=== PATIENT | female | born 1940 | race Caucasian/White ===

== ENCOUNTER 2016-07-17 07:47 | Outpatient (CLI) | payer MEDICARE, BC ==
[2016-07-17] VITALS (8 sets, daily range): BP systolic 125–169; BP diastolic 57–84; PULSE 65–77; TEMP 97.7–98.9
[~2016-07-17] VITALS: Ht 162.6 cm; Wt 74.0 kg
[~2016-07-17 07:47] MED LIST: ACTONEL PO; ADRENACLICK IM; ALEVE 220MG220 MG PO; ASPIRIN E.C. 8181 MG PO; ATIVAN 0.50.5 MG/TAB PO; CELEXA40 MG PO; CIPRO 250MG TA250 MG PO; CLINDAMYCIN HC150 MG PO; FOSAMAX 70MG TA70 MG PO; FOSAMAX70 MG PO; IMMUNE GLOBULIN 50 MG/ML IV; LEVOTHYROXINE PO; LEXAPRO20 MG PO; NEURONTIN300 MG/CAP PO; NEXIUM 20MG20 MG PO; NORCO 325 MG-51 TAB PO; PREDNISONE20 MG PO; PRILOSEC 20MG20 MG PO; PRISTIQ 50 MG T50 MG PO; SYNTHROID0.088 MG/T PO; SYNTHROID0.1 MG/TAB PO; WELLBUTRIN 100100 MG PO; WELLBUTRIN XL300 M1 PO; ZOLOFT 25MG25 MG PO; ZOLOFT 50MG50 MG PO
== END 2016-07-17 12:00 | disposition home or self-care (01) ==
LOC: EUO 07:47
DX: D80.1 Nonfamilial hypogammaglobulinemia (principal); Z45.2 Encounter for adjustment and management of vascular access device
CPT/HCPCS: J1459; J1644

== ENCOUNTER 2016-08-13 07:58 | Outpatient (CLI) | payer MEDICARE, BC ==
[2016-08-13] VITALS (9 sets, daily range): BP systolic 92–133; BP diastolic 47–68; PULSE 41–76; TEMP 97.5–98.3
[~2016-08-13] VITALS: Ht 162.6 cm; Wt 75.0 kg
== END 2016-08-13 11:54 | disposition home or self-care (01) ==
LOC: EUO 07:58
DX: D80.1 Nonfamilial hypogammaglobulinemia (principal)
CPT/HCPCS: J1459

== ENCOUNTER → 2016-09-01 | Outpatient (CLI) | payer MEDICARE, BC | LOC: MC.RAD 11:15 | DX: Z12.31 Encounter for screening mammogram for malignant neoplasm of breast (principal); D24.2 Benign neoplasm of left breast; D24.1 Benign neoplasm of right breast; Z80.3 Family history of malignant neoplasm of breast ==

== ENCOUNTER 2016-09-10 08:00 | Outpatient (CLI) | payer MEDICARE, BC ==
[~2016-09-10] VITALS: Ht 162.6 cm; Wt 75.0 kg
[2016-09-10] VITALS (8 sets, daily range): BP systolic 120–138; BP diastolic 55–95; PULSE 46–80; TEMP 97.3–97.9
== END 2016-09-10 13:16 | disposition home or self-care (01) ==
LOC: EUO 08:00
DX: D80.1 Nonfamilial hypogammaglobulinemia (principal)
CPT/HCPCS: J1459; J1644

== ENCOUNTER 2016-10-08 08:11 | Outpatient (CLI) | payer MEDICARE, BC ==
[~2016-10-08] VITALS: Ht 162.6 cm; Wt 75.0 kg
[2016-10-08 09:00] VITALS: BP 117/54; PULSE 64
[2016-10-08 09:15] VITALS: BP 117/93; PULSE 68
[2016-10-08 09:30] VITALS: BP 125/66; PULSE 71
[2016-10-08 09:45] VITALS: BP 124/64; PULSE 71
[2016-10-08 10:00] VITALS: BP 125/61; PULSE 63
[2016-10-08 10:30] VITALS: BP 134/70; PULSE 64
== END 2016-10-08 11:35 | disposition home or self-care (01) ==
LOC: EUO 08:11
DX: D80.1 Nonfamilial hypogammaglobulinemia (principal)
CPT/HCPCS: J1459; J1644

== ENCOUNTER → 2016-10-10 | Outpatient (CLI) | payer MEDICARE, BC | LOC: MHCPAIN 09:58 | DX: G89.29 Other chronic pain (principal); M47.27 Other spondylosis with radiculopathy, lumbosacral region | CPT/HCPCS: G0463 ==

== ENCOUNTER → 2016-10-16 | Outpatient (CLI) | payer MEDICARE, BC | LOC: MHCPAIN 12:10 | DX: M54.16 Radiculopathy, lumbar region (principal) | CPT/HCPCS: J1100; Q9967 ==

== ENCOUNTER 2016-11-05 08:01 | Outpatient (CLI) | payer MEDICARE, BC ==
[~2016-11-05] VITALS: Ht 162.6 cm; Wt 73.6 kg
[2016-11-05] VITALS (8 sets, daily range): BP systolic 131–149; BP diastolic 43–85; PULSE 43–73; TEMP 98.1–98.2
== END 2016-11-05 11:01 | disposition home or self-care (01) ==
LOC: EUO 08:01
DX: D80.1 Nonfamilial hypogammaglobulinemia (principal)
CPT/HCPCS: J1459

== ENCOUNTER → 2016-11-14 | Outpatient (CLI) | payer MEDICARE, BC | LOC: MHCPAIN 09:53 | DX: G89.29 Other chronic pain (principal); M47.817 Spondylosis without myelopathy or radiculopathy, lumbosacral region; M54.16 Radiculopathy, lumbar region | CPT/HCPCS: G0463 ==

== ENCOUNTER → 2016-11-20 | Outpatient (CLI) | payer MEDICARE, BC | LOC: MHCPAIN 11:19 | DX: M47.817 Spondylosis without myelopathy or radiculopathy, lumbosacral region (principal) | CPT/HCPCS: J1040; Q9967 ==

== ENCOUNTER 2016-12-03 07:53 | Outpatient (CLI) | payer MEDICARE, BC ==
[2016-12-03] VITALS (10 sets, daily range): BP systolic 137–169; BP diastolic 42–81; PULSE 59–71; TEMP 97.3
[~2016-12-03] VITALS: Ht 162.6 cm; Wt 72.7 kg
== END 2016-12-03 11:23 | disposition home or self-care (01) ==
LOC: EUO 07:53
DX: D80.1 Nonfamilial hypogammaglobulinemia (principal)
CPT/HCPCS: J1459

== ENCOUNTER → 2016-12-19 | Outpatient (CLI) | payer MEDICARE, BC | LOC: MHCPAIN 10:14 | DX: G89.29 Other chronic pain (principal); M47.817 Spondylosis without myelopathy or radiculopathy, lumbosacral region; M54.16 Radiculopathy, lumbar region; M25.50 Pain in unspecified joint | CPT/HCPCS: G0463 ==

== ENCOUNTER 2017-01-01 13:01 | Outpatient (CLI) | payer MEDICARE, BC ==
[2017-01-01] VITALS (10 sets, daily range): BP systolic 132–148; BP diastolic 51–64; PULSE 35–65; TEMP 98–98.7
== END 2017-01-01 18:00 | disposition home or self-care (01) ==
LOC: EUO 13:01
DX: Z01.89 Encounter for other specified special examinations (principal)
CPT/HCPCS: J1459

== ENCOUNTER 2017-01-28 07:58 | Outpatient (CLI) | payer MEDICARE, BC ==
[2017-01-28] VITALS (8 sets, daily range): BP systolic 121–143; BP diastolic 44–76; PULSE 45–79; TEMP 97.4–98.8
[~2017-01-28] VITALS: Ht 162.6 cm; Wt 73.3 kg
== END 2017-01-28 12:00 | disposition home or self-care (01) ==
LOC: EUO 07:58
DX: D80.1 Nonfamilial hypogammaglobulinemia (principal); Z79.899 Other long term (current) drug therapy
CPT/HCPCS: J1459; J1644

== ENCOUNTER → 2017-02-04 | Outpatient (CLI) | payer MEDICARE, BC | LOC: MHCPAIN 11:42 | DX: G89.29 Other chronic pain (principal); M50.90 Cervical disc disorder, unspecified, unspecified cervical region; R51 Headache | CPT/HCPCS: G0463 ==

== ENCOUNTER 2017-02-27 08:05 | Outpatient (CLI) | payer MEDICARE, BC ==
[2017-02-27] VITALS (7 sets, daily range): BP systolic 129–163; BP diastolic 60–74; PULSE 61–71; TEMP 97.5–98.3
[~2017-02-27] VITALS: Ht 162.6 cm; Wt 73.7 kg
== END 2017-02-27 12:00 | disposition home or self-care (01) ==
LOC: EUO 08:05
DX: D80.1 Nonfamilial hypogammaglobulinemia (principal); Z79.899 Other long term (current) drug therapy
CPT/HCPCS: J1459; J1644

== ENCOUNTER → 2017-03-09 | Outpatient (CLI) | payer MEDICARE, BC | LOC: MHCPAIN 10:03 | DX: G89.29 Other chronic pain (principal); M50.90 Cervical disc disorder, unspecified, unspecified cervical region; R51 Headache | CPT/HCPCS: G0463 ==

== ENCOUNTER → 2017-03-27 | Outpatient (CLI) | payer MEDICARE, BC ==
[~2017-03-27] MED LIST changes: +LYRICA 25MG CAP25 MG PO
== END ==
LOC: MHCPAIN 09:16
DX: G89.29 Other chronic pain (principal); M47.27 Other spondylosis with radiculopathy, lumbosacral region; M53.3 Sacrococcygeal disorders, not elsewhere classified
CPT/HCPCS: G0463

== ENCOUNTER 2017-03-31 07:42 | Outpatient (CLI) | payer MEDICARE, BC ==
[~2017-03-31] VITALS: Ht 162.6 cm; Wt 73.1 kg
[2017-03-31] VITALS (8 sets, daily range): BP systolic 121–136; BP diastolic 54–82; PULSE 61–72; TEMP 97.5–98.3
[~2017-03-31 07:42] MED LIST changes: -LYRICA 25MG CAP25 MG PO
[2017-03-31] MEDS ORDERED: LYRICA 25MG CAP25 MG PO (09:09)
== END 2017-03-31 12:00 | disposition home or self-care (01) ==
LOC: EUO 07:42
DX: D80.1 Nonfamilial hypogammaglobulinemia (principal); Z79.899 Other long term (current) drug therapy
CPT/HCPCS: J1459

== ENCOUNTER → 2017-04-22 | Outpatient (CLI) | payer MEDICARE, BC ==
[~2017-04-22] MED LIST changes: +LYRICA 25MG CAP25 MG PO
== END ==
LOC: MHCPAIN 07:59
DX: G89.29 Other chronic pain (principal); M47.27 Other spondylosis with radiculopathy, lumbosacral region; M47.812 Spondylosis without myelopathy or radiculopathy, cervical region; Z79.82 Long term (current) use of aspirin
CPT/HCPCS: G0463

== ENCOUNTER 2017-04-30 09:53 | Outpatient (CLI) | payer MEDICARE, BC ==
[2017-04-30] VITALS (7 sets, daily range): BP systolic 125–144; BP diastolic 53–75; PULSE 36–47; TEMP 97.6–98.6
[~2017-04-30] VITALS: Ht 162.6 cm; Wt 72.3 kg
== END 2017-04-30 13:30 | disposition home or self-care (01) ==
LOC: EUO 09:53
DX: D80.1 Nonfamilial hypogammaglobulinemia (principal)
CPT/HCPCS: J1459; J1644

== ENCOUNTER → 2017-05-20 | Outpatient (CLI) | payer MEDICARE, BC | LOC: MHCPAIN 10:25 | DX: G89.29 Other chronic pain (principal); M47.27 Other spondylosis with radiculopathy, lumbosacral region; M48.061 Spinal stenosis, lumbar region without neurogenic claudication | CPT/HCPCS: G0463 ==

== ENCOUNTER 2017-06-04 09:34 | Outpatient (CLI) | payer MEDICARE, BC ==
[~2017-06-04] VITALS: Ht 162.6 cm; Wt 79.7 kg
[2017-06-04 10:00] VITALS: BP 148/66; PULSE 66; TEMP 97.3
[2017-06-04 10:15] VITALS: BP 142/72; PULSE 68; TEMP 98
[2017-06-04 10:45] VITALS: BP 142/72; PULSE 68; TEMP 98
[2017-06-04 11:03] VITALS: BP 146/68; PULSE 71; TEMP 98
[2017-06-04 11:30] VITALS: BP 118/50; PULSE 62; TEMP 98
[2017-06-04 12:00] VITALS: BP 126/53; PULSE 65; TEMP 98
== END 2017-06-04 13:49 | disposition home or self-care (01) ==
LOC: EUO 09:34
DX: D80.1 Nonfamilial hypogammaglobulinemia (principal); Z79.899 Other long term (current) drug therapy
CPT/HCPCS: J1569

== ENCOUNTER 2017-07-02 09:44 | Outpatient (CLI) | payer MEDICARE, BC ==
[2017-07-02] VITALS (8 sets, daily range): BP systolic 118–153; BP diastolic 56–98; PULSE 60–75; TEMP 97.5–97.9
[~2017-07-02] VITALS: Ht 162.6 cm; Wt 73.5 kg
== END 2017-07-02 13:58 | disposition home or self-care (01) ==
LOC: EUO 09:44
DX: D80.1 Nonfamilial hypogammaglobulinemia (principal)
CPT/HCPCS: J1459; J1569; J1644

== ENCOUNTER 2017-07-29 09:35 | Outpatient (CLI) | payer MEDICARE, BC ==
[~2017-07-29] VITALS: Ht 162.6 cm; Wt 73.0 kg
[2017-07-29] VITALS (8 sets, daily range): BP systolic 111–127; BP diastolic 43–90; PULSE 43–73; TEMP 97.8–98.2
== END 2017-07-29 15:28 | disposition home or self-care (01) ==
LOC: EUO 09:35
DX: Z45.2 Encounter for adjustment and management of vascular access device (principal); D80.1 Nonfamilial hypogammaglobulinemia
CPT/HCPCS: J1569; J1644

== ENCOUNTER → 2017-08-04 | Outpatient (CLI) | payer MEDICARE, BC | LOC: MHCPAIN 10:01 | DX: G89.29 Other chronic pain (principal); M47.27 Other spondylosis with radiculopathy, lumbosacral region; M53.3 Sacrococcygeal disorders, not elsewhere classified | CPT/HCPCS: G0463 ==

== ENCOUNTER 2017-09-10 09:44 | Outpatient (CLI) | payer MEDICARE, BC ==
[~2017-09-10] VITALS: Ht 162.6 cm; Wt 73.6 kg
[2017-09-10] VITALS (9 sets, daily range): BP systolic 125–147; BP diastolic 51–745; PULSE 20–79; TEMP 97.2–98
== END 2017-09-10 14:05 | disposition home or self-care (01) ==
LOC: EUO 09:44
DX: D80.1 Nonfamilial hypogammaglobulinemia (principal); Z79.899 Other long term (current) drug therapy
CPT/HCPCS: J1569; J1644

== ENCOUNTER → 2017-09-14 | Outpatient (CLI) | payer MEDICARE, BC | LOC: MC.RAD 09-02 11:00 | DX: Z12.31 Encounter for screening mammogram for malignant neoplasm of breast (principal) ==

== ENCOUNTER → 2017-09-29 | Outpatient (CLI) | payer MEDICARE, BC | LOC: MHCPAIN 10:17 | DX: G89.29 Other chronic pain (principal); M47.817 Spondylosis without myelopathy or radiculopathy, lumbosacral region; M54.16 Radiculopathy, lumbar region; M53.3 Sacrococcygeal disorders, not elsewhere classified; M48.061 Spinal stenosis, lumbar region without neurogenic claudication | CPT/HCPCS: G0463 ==

== ENCOUNTER → 2017-10-07 | Outpatient (CLI) | payer MEDICARE, BC ==
[~2017-10-07] VITALS: Ht 162.6 cm; Wt 75.8 kg
[2017-10-07] VITALS (8 sets, daily range): BP systolic 115–153; BP diastolic 46–82; PULSE 64–75; TEMP 97–98.1
== END ==
LOC: EUO 09:09
DX: D80.1 Nonfamilial hypogammaglobulinemia (principal)
CPT/HCPCS: J1569

== ENCOUNTER → 2017-10-08 | Outpatient (CLI) | payer MEDICARE, BC | LOC: MHCPAIN 12:07 | DX: M47.27 Other spondylosis with radiculopathy, lumbosacral region (principal) | CPT/HCPCS: J1040; Q9967 ==

== ENCOUNTER 2017-11-04 11:22 | Outpatient (CLI) | payer MEDICARE, BC ==
[~2017-11-04] VITALS: Ht 162.6 cm; Wt 73.6 kg
[2017-11-04 12:03] VITALS: BP 139/56; PULSE 74; TEMP 98.2
[2017-11-04] MEDS ORDERED: ZITHROMAX Z PA250 MG PO (12:03)
[2017-11-04 12:45] VITALS: BP 139/56; PULSE 74; TEMP 98.2
[2017-11-04 13:30] VITALS: BP 131/70; PULSE 70; TEMP 97.7
[2017-11-04 15:00] VITALS: BP 133/51; PULSE 35; TEMP 98
[2017-11-04 15:30] VITALS: BP 133/51; PULSE 35; TEMP 98
== END 2017-11-04 15:35 | disposition home or self-care (01) ==
LOC: EUO 11:22
DX: D80.1 Nonfamilial hypogammaglobulinemia (principal); Z79.899 Other long term (current) drug therapy
CPT/HCPCS: J1459; J1569

== ENCOUNTER 2017-12-02 11:08 | Outpatient (CLI) | payer MEDICARE, BC ==
[~2017-12-02] VITALS: Ht 162.6 cm; Wt 74.0 kg
[~2017-12-02 11:08] MED LIST changes: +ZITHROMAX Z PA250 MG PO
[2017-12-02 11:49] VITALS: BP 113/41; PULSE 69; TEMP 98.4
[2017-12-02 12:30] VITALS: BP 137/74; PULSE 77; TEMP 97.9
[2017-12-02 13:00] VITALS: BP 133/41; PULSE 73; TEMP 97.5
[2017-12-02 13:28] VITALS: BP 139/48; PULSE 76; TEMP 98.2
== END 2017-12-02 15:17 | disposition home or self-care (01) ==
LOC: EUO 11:08
DX: D80.1 Nonfamilial hypogammaglobulinemia (principal); Z79.899 Other long term (current) drug therapy
CPT/HCPCS: J1569; J1644

== ENCOUNTER → 2017-12-31 | Outpatient (CLI) | payer MEDICARE, BC ==
[~2017-12-31] VITALS: Ht 162.6 cm; Wt 74.9 kg
[2017-12-31] VITALS (7 sets, daily range): BP systolic 117–142; BP diastolic 47–67; PULSE 64–72; TEMP 97.4–97.5
== END ==
LOC: EUO 11:00
DX: D80.1 Nonfamilial hypogammaglobulinemia (principal); Z45.2 Encounter for adjustment and management of vascular access device; Z95.9 Presence of cardiac and vascular implant and graft, unspecified
CPT/HCPCS: J1459; J1644

== ENCOUNTER → 2018-01-04 | Outpatient (CLI) | payer MEDICARE, BC | LOC: MHCPAIN 10:40 | DX: G89.29 Other chronic pain (principal); M47.817 Spondylosis without myelopathy or radiculopathy, lumbosacral region; M54.16 Radiculopathy, lumbar region; M53.3 Sacrococcygeal disorders, not elsewhere classified; M48.061 Spinal stenosis, lumbar region without neurogenic claudication | CPT/HCPCS: G0463 ==

== ENCOUNTER 2018-01-28 13:02 | Outpatient (CLI) | payer MEDICARE, BC ==
[~2018-01-28] VITALS: Ht 162.6 cm; Wt 74.2 kg
[2018-01-28] VITALS (7 sets, daily range): BP systolic 120–138; BP diastolic 38–70; PULSE 54–83; TEMP 97–98.1
== END 2018-01-28 16:56 | disposition home or self-care (01) ==
LOC: EUO 13:02
DX: D80.1 Nonfamilial hypogammaglobulinemia (principal); Z79.899 Other long term (current) drug therapy
CPT/HCPCS: J1459; J1569; J1644

== ENCOUNTER → 2018-02-02 | Outpatient (CLI) | payer MEDICARE, BC | LOC: MHCPAIN 14:30 | DX: G89.29 Other chronic pain (principal); M47.817 Spondylosis without myelopathy or radiculopathy, lumbosacral region; M54.16 Radiculopathy, lumbar region; M53.3 Sacrococcygeal disorders, not elsewhere classified; M96.1 Postlaminectomy syndrome, not elsewhere classified; M48.061 Spinal stenosis, lumbar region without neurogenic claudication | CPT/HCPCS: G0463 ==

== ENCOUNTER → 2018-02-11 | Outpatient (CLI) | payer MEDICARE, BC | LOC: MHCPAIN 12:11 | DX: M47.817 Spondylosis without myelopathy or radiculopathy, lumbosacral region (principal); M54.16 Radiculopathy, lumbar region | CPT/HCPCS: J1040; Q9967 ==

== ENCOUNTER 2018-03-04 09:56 | Outpatient (CLI) | payer MEDICARE, BC ==
[~2018-03-04] VITALS: Ht 162.6 cm; Wt 72.1 kg
[2018-03-04] VITALS (7 sets, daily range): BP systolic 115–141; BP diastolic 35–59; PULSE 60–74; TEMP 97–98.5
== END 2018-03-04 13:51 | disposition home or self-care (01) ==
LOC: EUO 09:56
DX: D80.1 Nonfamilial hypogammaglobulinemia (principal)
CPT/HCPCS: J1459; J1569; J1644

== ENCOUNTER 2018-04-01 09:58 | Outpatient (CLI) | payer MEDICARE, BC ==
[~2018-04-01] VITALS: Ht 162.6 cm; Wt 73.5 kg
[2018-04-01 10:49] VITALS: BP 122/63; PULSE 66; TEMP 98.3
[2018-04-01 10:57] VITALS: BP 121/58; PULSE 65; TEMP 97.5
[2018-04-01 11:30] VITALS: BP 118/63; PULSE 64
[2018-04-01 12:00] VITALS: BP 120/60; PULSE 67
[2018-04-01 12:30] VITALS: BP 127/95; PULSE 69; TEMP 97.6
[2018-04-01 13:00] VITALS: BP 128/76; PULSE 69; TEMP 97.7
== END 2018-04-01 13:37 | disposition home or self-care (01) ==
LOC: EUO 09:58
DX: D80.1 Nonfamilial hypogammaglobulinemia (principal)
CPT/HCPCS: J1459; J1569

== ENCOUNTER → 2018-04-05 | Outpatient (CLI) | payer MEDICARE, BC | LOC: MHCPAIN 10:13 | DX: G89.29 Other chronic pain (principal); M47.817 Spondylosis without myelopathy or radiculopathy, lumbosacral region; M54.16 Radiculopathy, lumbar region; M53.3 Sacrococcygeal disorders, not elsewhere classified | CPT/HCPCS: G0463 ==

== ENCOUNTER → 2018-04-22 | Outpatient (CLI) | payer MEDICARE, BC | LOC: MHCPAIN 13:13 | DX: M47.817 Spondylosis without myelopathy or radiculopathy, lumbosacral region (principal); M54.16 Radiculopathy, lumbar region | CPT/HCPCS: J1040; Q9967 ==

== ENCOUNTER → 2018-04-29 | Outpatient (CLI) | payer MEDICARE, BC ==
[~2018-04-29] VITALS: Ht 162.6 cm; Wt 73.0 kg
[2018-04-29 13:45] VITALS: BP 132/68; PULSE 66; TEMP 98.7
[2018-04-29 14:00] VITALS: BP 132/68; PULSE 66
[2018-04-29 14:15] VITALS: BP 133/73; PULSE 62; TEMP 97.9
[2018-04-29 14:30] VITALS: BP 134/63; PULSE 61
[2018-04-29 15:00] VITALS: BP 130/65; PULSE 63; TEMP 97.8
[2018-04-29 15:45] VITALS: BP 142/69; PULSE 63; TEMP 97
== END ==
LOC: EUO 12:58
DX: D80.1 Nonfamilial hypogammaglobulinemia (principal)
CPT/HCPCS: J1459; J1569; J1644

== ENCOUNTER 2018-06-28 12:59 | Outpatient (CLI) | payer MEDICARE, BC ==
[~2018-06-28] VITALS: Ht 162.6 cm; Wt 74.7 kg
[2018-06-28 14:15] VITALS: BP 138/47; PULSE 42; TEMP 98
[2018-06-28 14:30] VITALS: BP 106/67; PULSE 69; TEMP 98
[2018-06-28 14:45] VITALS: BP 110/62; PULSE 62; TEMP 98
[2018-06-28 15:15] VITALS: BP 110/62; PULSE 63; TEMP 98
[2018-06-28 15:45] VITALS: BP 109/68; PULSE 64; TEMP 98
[2018-06-28 16:31] VITALS: BP 110/60; PULSE 62; TEMP 98
== END 2018-06-28 16:32 | disposition home or self-care (01) ==
LOC: EUO 12:59
DX: D80.1 Nonfamilial hypogammaglobulinemia (principal)
CPT/HCPCS: J1569; J1644

== ENCOUNTER 2018-07-26 10:50 | Outpatient (CLI) | payer MEDICARE, BC ==
[~2018-07-26] VITALS: Ht 162.6 cm; Wt 75.0 kg
[2018-07-26] VITALS (8 sets, daily range): BP systolic 123–150; BP diastolic 51–76; PULSE 60–76; TEMP 97.6–99.2
== END 2018-07-26 14:22 | disposition home or self-care (01) ==
LOC: EUO 10:50
DX: D80.1 Nonfamilial hypogammaglobulinemia (principal)
CPT/HCPCS: J1569; J1644

== ENCOUNTER → 2018-09-06 | Outpatient (CLI) | payer MEDICARE, BC | LOC: MHCPAIN 08:26 | DX: G89.29 Other chronic pain (principal); M47.817 Spondylosis without myelopathy or radiculopathy, lumbosacral region; M54.16 Radiculopathy, lumbar region; M53.3 Sacrococcygeal disorders, not elsewhere classified | CPT/HCPCS: G0463 ==

== ENCOUNTER 2018-09-22 08:52 | Outpatient (CLI) | payer MEDICARE, BC ==
[~2018-09-22] VITALS: Ht 162.6 cm; Wt 75.3 kg
[2018-09-22] VITALS (7 sets, daily range): BP systolic 89–152; BP diastolic 54–73; PULSE 62–69; TEMP 98.4–98.5
[2018-09-22] MEDS ORDERED: PRINZIDE 25 MG-1 TAB PO (09:15)
== END 2018-09-22 13:28 | disposition home or self-care (01) ==
LOC: EUO 08:52
DX: D80.1 Nonfamilial hypogammaglobulinemia (principal)
CPT/HCPCS: J1459; J1569; J1644

== ENCOUNTER → 2018-09-30 | Outpatient (CLI) | payer MEDICARE, BC ==
[~2018-09-30] MED LIST changes: +PRINZIDE 25 MG-1 TAB PO
== END ==
LOC: MC.RAD 10:52
DX: Z12.31 Encounter for screening mammogram for malignant neoplasm of breast (principal)

== ENCOUNTER → 2018-10-07 | Outpatient (CLI) | payer MEDICARE, BC | LOC: MHCPAIN 12:20 | DX: M47.817 Spondylosis without myelopathy or radiculopathy, lumbosacral region (principal); M54.16 Radiculopathy, lumbar region; G89.29 Other chronic pain; M53.3 Sacrococcygeal disorders, not elsewhere classified | CPT/HCPCS: G0463 ==

== ENCOUNTER 2018-11-10 12:54 | Outpatient (CLI) | payer MEDICARE, BC ==
[2018-11-10] VITALS (8 sets, daily range): BP systolic 108–133; BP diastolic 47–88; PULSE 59–78; TEMP 97–98.6
[~2018-11-10] VITALS: Ht 162.6 cm; Wt 74.0 kg
== END 2018-11-10 16:21 | disposition home or self-care (01) ==
LOC: EUO 12:54
DX: D80.1 Nonfamilial hypogammaglobulinemia (principal)
CPT/HCPCS: J1569; J1644

== ENCOUNTER 2018-12-16 08:57 | Outpatient (CLI) | payer MEDICARE, BC ==
[~2018-12-16] VITALS: Ht 162.6 cm; Wt 74.3 kg
[2018-12-16] VITALS (9 sets, daily range): BP systolic 120–163; BP diastolic 52–89; PULSE 38–70; TEMP 97.8–98.1
[2018-12-16] MEDS ORDERED: LEVAQUIN 2250 MG/TAB (09:35)
[2018-12-16] MEDS ORDERED: sleep aid (09:36)
--- NOTE | 2018-12-16 11:53 | NUR ---
REPORTED OFF TO WU SAMPSON IN REGARDS TO PT'S INFUSION AND CARE PLAN.
== END 2018-12-16 13:21 | disposition home or self-care (01) ==
LOC: EUO 08:57
DX: D80.1 Nonfamilial hypogammaglobulinemia (principal); Z79.899 Other long term (current) drug therapy
CPT/HCPCS: J1569; J1644

== ENCOUNTER → 2019-01-12 | Outpatient (CLI) | payer MEDICARE, BC ==
[~2019-01-12] MED LIST changes: +CALCIUM 600MG+D1 TAB PO; +DESYREL 50MG50 MG PO; +LEVAQUIN 2250 MG/TAB; +ZITHROMAX 250M250 MG PO; +sleep aid
== END ==
LOC: MHCPAIN 12:31
DX: G89.29 Other chronic pain (principal); M47.817 Spondylosis without myelopathy or radiculopathy, lumbosacral region; M54.16 Radiculopathy, lumbar region; M53.3 Sacrococcygeal disorders, not elsewhere classified
CPT/HCPCS: G0463

== ENCOUNTER 2019-01-13 08:59 | Outpatient (CLI) | payer MEDICARE, BC ==
[~2019-01-13] VITALS: Ht 162.6 cm; Wt 74.5 kg
[2019-01-13] VITALS (7 sets, daily range): BP systolic 114–144; BP diastolic 40–80; PULSE 40–82; TEMP 97.8–98.1
[~2019-01-13 08:59] MED LIST changes: -CALCIUM 600MG+D1 TAB PO; -DESYREL 50MG50 MG PO; -ZITHROMAX 250M250 MG PO
[2019-01-13] MEDS ORDERED: ZITHROMAX 250M250 MG PO (09:38)
[2019-01-13] MEDS ORDERED: CALCIUM 600MG+D1 TAB PO (09:41)
[2019-01-13] MEDS ORDERED: DESYREL 50MG50 MG PO (09:41)
== END 2019-01-13 12:26 | disposition home or self-care (01) ==
LOC: EUO 08:59
DX: D80.1 Nonfamilial hypogammaglobulinemia (principal); Z79.899 Other long term (current) drug therapy
CPT/HCPCS: J1459; J1569; J1644

== ENCOUNTER 2019-03-08 12:56 | Outpatient (CLI) | payer MEDICARE, BC ==
[~2019-03-08] VITALS: Ht 162.6 cm; Wt 73.4 kg
[2019-03-08] VITALS (10 sets, daily range): BP systolic 81–155; BP diastolic 47–110; PULSE 33–74; TEMP 97.6–98.6
[~2019-03-08 12:56] MED LIST changes: +CALCIUM 600MG+D1 TAB PO; +DESYREL 50MG50 MG PO; +ZITHROMAX 250M250 MG PO
[2019-03-08 13:59] LABS: BILIRUBIN UNCONJUGATED 0.4 mg/dL (0.0-1.1); BILIRUBIN,TOTAL 0.3 mg/dL (0.0-1.0); TOTAL PROTEIN 6.7 gm/dL (6.4-8.2)
[2019-03-08 15:29] LABS: RED BLOOD COUNT 4.57 M/mm3 (4.10-5.30)
[2019-03-08 15:31] LABS: EOS % 6.3 % (0-4.0); GRAN # 3.8 (1.4-6.5); HEMATOCRIT 40.5 % (37.0-47.0); HEMOGLOBIN 12.5 g/dl (12.5-16.0); LYMPH % 18.1 % (20.0-51.0); MEAN CELL VOLUME 89 fl (80.0-100.0); MEAN CORPUSCULAR HEMOGLOBIN 27 pg (27.0-31.0); MEAN CORPUSCULAR HGB CONC 31 g/dl (33.0-37.0); MEAN PLATELET VOLUME 12.8 fl (7.4-10.4); MONO % 9.4 % (1.7-9.3); PLATELET COUNT 175 K/mm3 (130-400); REDCELL DISTRIBUTION WIDTH-CV 15.2 % (11.5-14.5)
[2019-03-08 15:32] LABS: EOS # 0.4 (0.0-0.7); MONO # 0.5 (0.1-0.6)
== END 2019-03-08 16:25 | disposition home or self-care (01) ==
LOC: EUO 12:56
PROVIDERS: Internal Medicine
DX: D80.1 Nonfamilial hypogammaglobulinemia (principal); Z79.899 Other long term (current) drug therapy
CPT/HCPCS: J1569; J1644

== ENCOUNTER 2019-04-05 12:56 | Outpatient (CLI) | payer MEDICARE, BC ==
[~2019-04-05] VITALS: Ht 162.6 cm; Wt 83.4 kg
[2019-04-05 13:39] VITALS: BP 120/48; PULSE 42; TEMP 98.1
[2019-04-05 13:53] VITALS: BP 130/52; PULSE 40; TEMP 98.2
[2019-04-05 14:08] VITALS: BP 138/56; PULSE 42; TEMP 98.2
[2019-04-05 14:23] VITALS: BP 146/56; PULSE 35; TEMP 98.1
[2019-04-05 14:38] VITALS: BP 122/86; PULSE 35; TEMP 98.4
[2019-04-05 15:16] VITALS: BP 120/52; PULSE 42; TEMP 98.1
== END 2019-04-05 15:15 | disposition home or self-care (01) ==
LOC: EUO 12:56
DX: D80.1 Nonfamilial hypogammaglobulinemia (principal)
CPT/HCPCS: J1459; J1569; J1644

== ENCOUNTER 2019-05-02 13:17 | Outpatient (CLI) | payer MEDICARE, BC ==
[2019-05-02] VITALS (8 sets, daily range): BP systolic 136–176; BP diastolic 58–81; PULSE 55–83; TEMP 98–98.5
[~2019-05-02] VITALS: Ht 162.6 cm; Wt 74.0 kg
[2019-05-02 14:15] LABS: EOS # 0.5 (0.0-0.7); EOS % 7.4 % (0-4.0); GRAN # 4.3 (1.4-6.5); GRAN % 69.9 % (42.2-75.2); HEMATOCRIT 37.3 % (37.0-47.0); LYMPH # 0.8 (1.2-3.4); LYMPH % 13.7 % (20.0-51.0); MEAN CELL VOLUME 91 fl (80.0-100.0); MEAN CORPUSCULAR HEMOGLOBIN 29 pg (27.0-31.0); MEAN CORPUSCULAR HGB CONC 32 g/dl (33.0-37.0); MONO # 0.5 (0.1-0.6); MONO % 8.8 % (1.7-9.3); PLATELET COUNT 155 K/mm3 (130-400); RED BLOOD COUNT 4.11 M/mm3 (4.10-5.30); REDCELL DISTRIBUTION WIDTH-CV 15.2 % (11.5-14.5)
[2019-05-02 14:27] LABS: ALBUMIN 3.8 gm/dL (3.5-5.0); BILIRUBIN,TOTAL 0.3 mg/dL (0.0-1.0); CALCIUM 8.9 mg/dL (8.4-10.2); CREATININE, serum 0.66 (0.52-1.25); POTASSIUM 4.1 mmol/L (3.4-5.0); TOTAL PROTEIN 6.6 gm/dL (6.4-8.2)
[2019-05-02] MEDS ORDERED: I-VITE LUTEIN1 TAB PO (14:39)
== END 2019-05-02 17:37 | disposition home or self-care (01) ==
LOC: EUO 13:17
PROVIDERS: Internal Medicine
DX: D80.1 Nonfamilial hypogammaglobulinemia (principal); Z79.899 Other long term (current) drug therapy
CPT/HCPCS: J1459; J1569; J1644

== ENCOUNTER 2019-05-30 12:44 | Outpatient (CLI) | payer MEDICARE, BC ==
[~2019-05-30] VITALS: Ht 162.6 cm; Wt 74.4 kg
[2019-05-30] VITALS (7 sets, daily range): BP systolic 96–158; BP diastolic 58–109; PULSE 37–72; TEMP 96.8–97.7
[~2019-05-30 12:44] MED LIST changes: +I-VITE LUTEIN1 TAB PO
== END 2019-05-30 17:45 | disposition home or self-care (01) ==
LOC: EUO 12:44
DX: D80.1 Nonfamilial hypogammaglobulinemia (principal); Z79.899 Other long term (current) drug therapy
CPT/HCPCS: J1569; J1644

== ENCOUNTER 2019-06-27 11:55 | Outpatient (CLI) | payer MEDICARE, BC ==
[~2019-06-27] VITALS: Ht 162.6 cm; Wt 74.7 kg
[2019-06-27] VITALS (9 sets, daily range): BP systolic 115–153; BP diastolic 60–72; PULSE 62–69; TEMP 97.9–98
[2019-06-27] MEDS ORDERED: PREDNISONE10 MG PO (13:38)
[2019-06-27] MEDS ORDERED: ZYRTEC 10MG10 MG PO (13:39)
== END 2019-06-27 15:21 | disposition home or self-care (01) ==
LOC: EUO 11:55
DX: D80.1 Nonfamilial hypogammaglobulinemia (principal); Z79.899 Other long term (current) drug therapy
CPT/HCPCS: J1459; J1569; J1644

== ENCOUNTER → 2019-07-06 | Outpatient (CLI) | payer MEDICARE, BC ==
[~2019-07-06] MED LIST changes: +CYCLOSPORINE100 MG PO; +PREDNISONE10 MG PO; +ZYRTEC 10MG10 MG PO
== END ==
LOC: MHCPAIN 10:56
DX: M47.817 Spondylosis without myelopathy or radiculopathy, lumbosacral region (principal); M54.16 Radiculopathy, lumbar region
CPT/HCPCS: G0463

== ENCOUNTER 2019-07-25 12:37 | Outpatient (CLI) | payer MEDICARE, BC ==
[2019-07-25] VITALS (7 sets, daily range): BP systolic 132–150; BP diastolic 71–95; PULSE 67–88; TEMP 97.9
[~2019-07-25] VITALS: Ht 162.6 cm; Wt 72.8 kg
[~2019-07-25 12:37] MED LIST changes: -CYCLOSPORINE100 MG PO
--- NOTE | 2019-07-25 15:37 | NUR ---
Pt refused to take xolair untila fter she sess Dr Francois tomorrow.This nurse notified pharmacy.Instructed pt to call after apt tomorrow to schedule xolair shot as ordered.
[2019-07-25] MEDS ORDERED: CYCLOSPORINE100 MG PO (17:05)
== END 2019-07-25 15:47 | disposition home or self-care (01) ==
LOC: EUO 12:37
DX: D80.1 Nonfamilial hypogammaglobulinemia (principal); Z79.899 Other long term (current) drug therapy
CPT/HCPCS: J1459; J1569; J1644

== ENCOUNTER 2019-07-28 15:49 | Outpatient (CLI) | payer MEDICARE, BC ==
[~2019-07-28 15:49] MED LIST changes: +CYCLOSPORINE100 MG PO
[2019-07-28] MEDS ORDERED: CYCLOSPORINE100 MG PO (16:31)
[2019-07-28 16:59] VITALS: BP 166/77; PULSE 83; TEMP 98
== END 2019-07-28 19:14 | disposition home or self-care (01) ==
LOC: EUO 15:49
DX: L50.1 Idiopathic urticaria (principal)
CPT/HCPCS: J2357

== ENCOUNTER 2019-08-22 12:49 | Outpatient (CLI) | payer MEDICARE, BC ==
[~2019-08-22] VITALS: Ht 162.6 cm; Wt 72.9 kg
[2019-08-22] VITALS (7 sets, daily range): BP systolic 115–144; BP diastolic 57–82; PULSE 40–80; TEMP 98–98.6
== END 2019-08-22 21:50 | disposition home or self-care (01) ==
LOC: EUO 12:49
DX: D80.1 Nonfamilial hypogammaglobulinemia (principal); Z79.899 Other long term (current) drug therapy
CPT/HCPCS: J1459; J1569; J1644; J2357

== ENCOUNTER 2019-11-15 12:40 | Outpatient (CLI) | payer MEDICARE, BC ==
[~2019-11-15] VITALS: Ht 162.6 cm; Wt 72.5 kg
[2019-11-15] VITALS (7 sets, daily range): BP systolic 127–157; BP diastolic 56–85; PULSE 34–74; TEMP 97.8
== END 2019-11-15 15:04 | disposition home or self-care (01) ==
LOC: EUO 12:40
DX: D80.1 Nonfamilial hypogammaglobulinemia (principal); Z79.899 Other long term (current) drug therapy
CPT/HCPCS: J1569; J2357

== ENCOUNTER 2019-12-13 12:30 | Outpatient (CLI) | payer MEDICARE, BC ==
[2019-12-13] VITALS (8 sets, daily range): BP systolic 137–158; BP diastolic 59–78; PULSE 40–55; TEMP 97–98.7
[~2019-12-13] VITALS: Ht 162.6 cm; Wt 72.0 kg
== END 2019-12-13 16:39 | disposition home or self-care (01) ==
LOC: EUO 12:30
DX: D80.1 Nonfamilial hypogammaglobulinemia (principal); Z79.899 Other long term (current) drug therapy
CPT/HCPCS: J1569; J1644; J2357

== ENCOUNTER 2020-01-10 13:13 | Outpatient (CLI) | payer MEDICARE, BC ==
[~2020-01-10] VITALS: Ht 162.6 cm; Wt 72.7 kg
[2020-01-10] VITALS (9 sets, daily range): BP systolic 90–151; BP diastolic 54–83; PULSE 36–68; TEMP 98.6–98.8
== END 2020-01-10 17:12 | disposition home or self-care (01) ==
LOC: EUO 13:13
DX: D80.1 Nonfamilial hypogammaglobulinemia (principal); Z79.899 Other long term (current) drug therapy
CPT/HCPCS: J1569; J1644; J2357

== ENCOUNTER → 2020-02-07 | Outpatient (CLI) | payer MEDICARE, BC ==
[2020-02-07] VITALS (9 sets, daily range): BP systolic 128–154; BP diastolic 57–79; PULSE 34–91; TEMP 98.9
[~2020-02-07] VITALS: Ht 162.6 cm; Wt 73.1 kg
== END ==
LOC: EUO 12:59
DX: D80.1 Nonfamilial hypogammaglobulinemia (principal); Z79.899 Other long term (current) drug therapy
CPT/HCPCS: J1569; J1644; J2357

== ENCOUNTER → 2020-02-22 | Outpatient (CLI) | payer MEDICARE, BC | LOC: MHCPAIN 14:34 | DX: M47.817 Spondylosis without myelopathy or radiculopathy, lumbosacral region (principal); M54.5 Low back pain; M25.551 Pain in right hip; M53.3 Sacrococcygeal disorders, not elsewhere classified | CPT/HCPCS: G0463 ==

== ENCOUNTER 2020-03-06 12:57 | Outpatient (CLI) | payer MEDICARE, BC ==
[~2020-03-06] VITALS: Ht 162.6 cm; Wt 75.0 kg
[2020-03-06 13:30] VITALS: BP 107/69; PULSE 60; TEMP 98.3
[2020-03-06 13:45] VITALS: BP 126/54; PULSE 40
[2020-03-06 14:00] VITALS: BP 123/55; PULSE 48
[2020-03-06 14:30] VITALS: BP 117/60; PULSE 49; TEMP 98.3
[2020-03-06 15:00] VITALS: BP 131/79; PULSE 60; TEMP 98
[2020-03-06 15:30] VITALS: BP 138/72; PULSE 59; TEMP 98.3
== END 2020-03-06 15:45 | disposition home or self-care (01) ==
LOC: EUO 12:57
DX: D80.1 Nonfamilial hypogammaglobulinemia (principal); L50.1 Idiopathic urticaria
CPT/HCPCS: J1569; J1644; J2357

== ENCOUNTER → 2020-03-08 | Outpatient (CLI) | payer MEDICARE, BC | LOC: MHCPAIN 12:44 | DX: M47.817 Spondylosis without myelopathy or radiculopathy, lumbosacral region (principal); M54.5 Low back pain | CPT/HCPCS: J1040; Q9967 ==

== ENCOUNTER → 2020-04-03 | Outpatient (CLI) | payer MEDICARE, BC ==
[2020-04-03] VITALS (7 sets, daily range): BP systolic 102–145; BP diastolic 43–99; PULSE 34–48; TEMP 98.3–98.5
[~2020-04-03] VITALS: Ht 162.6 cm; Wt 74.8 kg
== END ==
LOC: EUO 13:00
DX: D80.1 Nonfamilial hypogammaglobulinemia (principal); L50.1 Idiopathic urticaria; Z79.899 Other long term (current) drug therapy
CPT/HCPCS: J1569; J1644; J2357

== ENCOUNTER → 2020-05-01 | Outpatient (CLI) | payer MEDICARE, BC ==
[2020-05-01] VITALS (7 sets, daily range): BP systolic 144–165; BP diastolic 58–68; PULSE 35–74; TEMP 98.6–99.2
== END ==
LOC: EUO 12:47
DX: L50.1 Idiopathic urticaria (principal)
CPT/HCPCS: J1459; J1569; J1644; J2357

== ENCOUNTER 2020-05-29 13:00 | Outpatient (CLI) | payer MEDICARE, BC ==
[2020-05-29] VITALS (7 sets, daily range): BP systolic 121–165; BP diastolic 47–102; PULSE 31–42; TEMP 98.6
== END 2020-05-29 16:51 | disposition home or self-care (01) ==
LOC: EUO 13:00
DX: L50.1 Idiopathic urticaria (principal)
CPT/HCPCS: J1569; J1644

== ENCOUNTER 2020-06-05 12:56 | Outpatient (CLI) | payer MEDICARE, BC ==
[~2020-06-05] VITALS: Ht 165.1 cm; Wt 77.1 kg
[2020-06-05 13:24] VITALS: BP 163/75; PULSE 76; TEMP 98.1
== END 2020-06-05 13:36 | disposition home or self-care (01) ==
LOC: EUO 12:56
DX: L50.1 Idiopathic urticaria (principal); Z79.899 Other long term (current) drug therapy
CPT/HCPCS: J2357

== ENCOUNTER 2020-06-27 12:51 | Outpatient (CLI) | payer MEDICARE, BC ==
[~2020-06-27] VITALS: Ht 165.1 cm; Wt 77.1 kg
[2020-06-27 13:21] VITALS: BP 111/47; PULSE 48; TEMP 98.8
[2020-06-27 13:45] VITALS: BP 121/61; PULSE 39
[2020-06-27 14:00] VITALS: BP 138/59; PULSE 41
[2020-06-27 14:30] VITALS: BP 143/65; PULSE 94
[2020-06-27 15:00] VITALS: BP 149/61; PULSE 67
[2020-06-27 15:22] VITALS: BP 131/59; PULSE 103
== END 2020-06-27 16:30 | disposition home or self-care (01) ==
LOC: EUO 12:51
DX: D80.1 Nonfamilial hypogammaglobulinemia (principal)
CPT/HCPCS: J1569; J1644

== ENCOUNTER 2020-07-16 12:45 | Outpatient (CLI) | payer MEDICARE, BC ==
[~2020-07-16] VITALS: Ht 165.1 cm; Wt 77.1 kg
[2020-07-16 13:16] VITALS: BP 154/61; PULSE 40; TEMP 98.4
[2020-07-16] MEDS ORDERED: SINGULAIR 110 MG/TAB PO (13:29)
== END 2020-07-16 16:03 | disposition home or self-care (01) ==
LOC: EUO 12:45
DX: L50.1 Idiopathic urticaria (principal)
CPT/HCPCS: J2357

== ENCOUNTER 2020-07-25 12:41 | Outpatient (CLI) | payer MEDICARE, BC ==
[~2020-07-25] VITALS: Ht 165.1 cm; Wt 78.0 kg
[2020-07-25] VITALS (7 sets, daily range): BP systolic 140–145; BP diastolic 50–62; PULSE 36–40; TEMP 98–98.6
[~2020-07-25 12:41] MED LIST changes: +SINGULAIR 110 MG/TAB PO
== END 2020-07-25 15:55 | disposition home or self-care (01) ==
LOC: EUO 12:41
DX: D80.1 Nonfamilial hypogammaglobulinemia (principal); L50.1 Idiopathic urticaria
CPT/HCPCS: J1569; J1644

== ENCOUNTER 2020-08-22 12:40 | Outpatient (CLI) | payer MEDICARE, BC ==
[2020-08-22] VITALS (8 sets, daily range): BP systolic 140–160; BP diastolic 75–80; PULSE 56–62; TEMP 97.8–98.5
== END 2020-08-23 10:32 | disposition home or self-care (01) ==
LOC: EUO 12:40
DX: D80.1 Nonfamilial hypogammaglobulinemia (principal)
CPT/HCPCS: J1569; J1644

== ENCOUNTER 2020-09-03 12:54 | Outpatient (CLI) | payer MEDICARE, BC ==
[~2020-09-03] VITALS: Ht 165.1 cm; Wt 77.2 kg
[2020-09-03 13:16] VITALS: BP 134/79; PULSE 47; TEMP 99.1
== END 2020-09-03 13:30 | disposition home or self-care (01) ==
LOC: EUO
DX: L50.1 Idiopathic urticaria (principal); Z79.899 Other long term (current) drug therapy
CPT/HCPCS: J2357

== ENCOUNTER → 2020-09-04 | Outpatient (CLI) | payer MEDICARE, BC ==
[~2020-09-04] MED LIST changes: +ATROVENTNS0.03% NS; +CLEOCIN HC150 MG/CAP PO; +CORDARONE200 MG/TAB PO; +EPIPEN 2-PAK1 MG/ML IM; +PRIVIGEN 100 M100 ML IV; +TAGAMET800 MG PO; +TOPROL XL 25MG25 MG PO; +VESICARE 5MG5 MG PO
== END ==
LOC: MHCPAIN 10:45
DX: M47.817 Spondylosis without myelopathy or radiculopathy, lumbosacral region (principal); M53.3 Sacrococcygeal disorders, not elsewhere classified; M54.5 Low back pain; M79.2 Neuralgia and neuritis, unspecified; G89.29 Other chronic pain
CPT/HCPCS: G0463

== ENCOUNTER → 2020-09-17 | Outpatient (CLI) | payer MEDICARE, BC | LOC: MHCPAIN 11:41 | DX: M53.3 Sacrococcygeal disorders, not elsewhere classified (principal); M47.818 Spondylosis without myelopathy or radiculopathy, sacral and sacrococcygeal region | CPT/HCPCS: G0260; J1040; Q9967 ==

== ENCOUNTER 2020-09-19 12:48 | Outpatient (CLI) | payer MEDICARE, BC ==
[~2020-09-19] VITALS: Ht 165.1 cm; Wt 75.4 kg
[2020-09-19] VITALS (7 sets, daily range): BP systolic 150–158; BP diastolic 62–85; PULSE 54–58; TEMP 98–98.5
[~2020-09-19 12:48] MED LIST changes: -ATROVENTNS0.03% NS; -CLEOCIN HC150 MG/CAP PO; -CORDARONE200 MG/TAB PO; -EPIPEN 2-PAK1 MG/ML IM; -PRIVIGEN 100 M100 ML IV; -TAGAMET800 MG PO; -TOPROL XL 25MG25 MG PO; -VESICARE 5MG5 MG PO
== END 2020-09-19 16:14 | disposition home or self-care (01) ==
LOC: EUO 12:48
DX: D80.1 Nonfamilial hypogammaglobulinemia (principal); L50.1 Idiopathic urticaria
CPT/HCPCS: J1569; J1644

== ENCOUNTER → 2020-10-02 | Outpatient (CLI) | payer MEDICARE, BC ==
[~2020-10-02] MED LIST changes: +ATROVENTNS0.03% NS; +CLEOCIN HC150 MG/CAP PO; +CORDARONE200 MG/TAB PO; +EPIPEN 2-PAK1 MG/ML IM; +PRIVIGEN 100 M100 ML IV; +TAGAMET800 MG PO; +TOPROL XL 25MG25 MG PO; +VESICARE 5MG5 MG PO
== END ==
LOC: MHCPAIN 10:59
DX: M47.817 Spondylosis without myelopathy or radiculopathy, lumbosacral region (principal); M54.5 Low back pain; M53.3 Sacrococcygeal disorders, not elsewhere classified; G89.29 Other chronic pain
CPT/HCPCS: G0463

== ENCOUNTER 2020-10-17 12:40 | Outpatient (CLI) | payer MEDICARE, BC ==
[~2020-10-17] VITALS: Ht 165.1 cm; Wt 74.5 kg
[2020-10-17] VITALS (9 sets, daily range): BP systolic 135–170; BP diastolic 56–84; PULSE 34–66; TEMP 98.2
[~2020-10-17 12:40] MED LIST changes: -ATROVENTNS0.03% NS; -CLEOCIN HC150 MG/CAP PO; -CORDARONE200 MG/TAB PO; -EPIPEN 2-PAK1 MG/ML IM; -PRIVIGEN 100 M100 ML IV; -TAGAMET800 MG PO; -TOPROL XL 25MG25 MG PO; -VESICARE 5MG5 MG PO
== END 2020-10-17 19:24 | disposition home or self-care (01) ==
LOC: EUO 12:40
DX: D80.1 Nonfamilial hypogammaglobulinemia (principal); Z79.899 Other long term (current) drug therapy
CPT/HCPCS: J1569; J1644

== ENCOUNTER 2020-10-29 12:48 | Outpatient (CLI) | payer MEDICARE, BC ==
[2020-10-29 13:08] VITALS: BP 139/62; PULSE 41; TEMP 98.9
== END 2020-10-29 15:18 | disposition home or self-care (01) ==
LOC: EUO 12:48
DX: Z79.899 Other long term (current) drug therapy (principal)
CPT/HCPCS: J2357

== ENCOUNTER 2020-11-05 06:40 | Day surgery (SDC) | payer MEDICARE, BC ==
[~2020-11-05] VITALS: Ht 165.1 cm; Wt 73.8 kg
[2020-11-05] VITALS (12 sets, daily range): BP systolic 105–153; BP diastolic 42–97; PULSE 30–87; TEMP 97.2–98
[2020-11-05 07:37] LABS: HEMATOCRIT 37.7 % (37.0-47.0); MEAN CELL VOLUME 89 fl (80.0-100.0); MEAN CORPUSCULAR HEMOGLOBIN 28 pg (27.0-31.0); MEAN CORPUSCULAR HGB CONC 32 g/dl (33.0-37.0); MEAN PLATELET VOLUME 11.8 fl (7.4-10.4); PLATELET COUNT 189 K/mm3 (130-400); RED BLOOD COUNT 4.22 M/mm3 (4.10-5.30); REDCELL DISTRIBUTION WIDTH-CV 15.7 % (11.5-14.5)
[2020-11-05 07:44] LABS: INR 1.2 (0.8-3.0)
[2020-11-05 07:48] LABS: CALCIUM 9.1 mg/dL (8.4-10.2); CREATININE, serum 0.86 (0.52-1.25)
[2020-11-05] MEDS ORDERED: NEXIUM 20MG20 MG PO (07:58)
[2020-11-05] MEDS ORDERED: EPIPEN 2-PAK1 MG/ML IM (07:58)
[2020-11-05] MEDS ORDERED: TAGAMET800 MG PO (07:58)
[2020-11-05] MEDS ORDERED: ATROVENTNS0.03% NS (07:59)
[2020-11-05] MEDS ORDERED: PRIVIGEN 100 M100 ML IV (08:03)
[2020-11-05 11:25] LABS: BASO % 0.5 % (0.0-2.0); EOS # 0.4 (0.0-0.7); EOS % 7.7 % (0-4.0); GRAN % 70.2 % (42.2-75.2); HEMOGLOBIN 11.4 g/dl (12.5-16.0); LYMPH # 0.7 (1.2-3.4); MEAN CELL VOLUME 90 fl (80.0-100.0); MEAN CORPUSCULAR HEMOGLOBIN 30 pg (27.0-31.0); MEAN CORPUSCULAR HGB CONC 33 g/dl (33.0-37.0); MEAN PLATELET VOLUME 11.9 fl (7.4-10.4); MONO # 0.5 (0.1-0.6); MONO % 9.4 % (1.7-9.3); PLATELET COUNT 178 K/mm3 (130-400); RED BLOOD COUNT 3.84 M/mm3 (4.10-5.30); REDCELL DISTRIBUTION WIDTH-CV 15.8 % (11.5-14.5)
[2020-11-05 11:26] LABS: HEMATOCRIT 34.7 % (37.0-47.0)
[2020-11-05 12:13] LABS: THYROID STIMULATING HORMONE 5.92 uIU/mL (0.465-4.680)
[2020-11-05 12:21] LABS: ALBUMIN 3.6 gm/dL (3.5-5.0); BILIRUBIN,TOTAL 0.2 mg/dL (0.0-1.0); CALCIUM 8.6 mg/dL (8.4-10.2); CREATININE, serum 0.74 (0.52-1.25); POTASSIUM 3.8 mmol/L (3.4-5.0); TOTAL PROTEIN 6.6 gm/dL (6.4-8.2)
--- NOTE | 2020-11-05 18:16 | NUR ---
Pt resting in the room. Pt had C/O mild pain / discomfort at the insertion site and radiating to her left side, given tylenol and place an ice pack for relief, rechecked ands Pt stated she was more comfortable after. Pt using restroom with some assistance. Post op VS were stable. Pt eating and drinking well.
[2020-11-06 03:46] VITALS: BP 132/53; PULSE 70; TEMP 97.4
--- NOTE | 2020-11-06 05:50 | NUR ---
At this time, patient's port to right chest is flushed prior to initiating IV abx. Patient complains this is painful. No blood turn is observed from the port. The surrounding skin around the port also appears to be puffy. Dr. Levy is notified. He orders 300 mg clindamycin PO TID, placement verification via chest xray and to notify "whoever is in charge of ports and PICC lines". Will pass on to day shift that Jennifer needs to be notified VANESSA.
--- NOTE | 2020-11-06 06:36 | NUR ---
PT C/O PAIN TO RIGHT PORT AFTER 5ML FLUSH, AND SITE APPEARS PUFFY. CALLED [employer]ESS, IV CLINDAMYCIN DC/D, ORDER TO INITIATE PO CONFIRMED. CALL LIGHT WITHIN REACH.
[2020-11-06 07:44] VITALS: BP 140/54; PULSE 42; TEMP 97.6
--- NOTE | 2020-11-06 10:49 | NUR ---
First visit from the stone rigger. No needs right now.
[2020-11-06 11:22] VITALS: BP 143/57; PULSE 70; TEMP 97.6
[2020-11-06] MEDS ORDERED: CLEOCIN HC150 MG/CAP PO (11:25)
--- NOTE | 2020-11-06 11:26 | NUR ---
Called to bedside by Asad, primary nurse, and advised that port was not flushed with heparin after de-accessing. 1" apple needle used to access port after skin prep and + blood return recieved. Flushed with NS 10ml and sterile occlusive dressing applied. Asad will administer med for nausea.
--- NOTE | 2020-11-06 13:10 | NUR ---
The patient discharge before this Patient Registrar could complete intake.
--- NOTE | 2020-11-06 13:10 | NUR ---
Pt discharged to home, discussed discharge information with Pt, answered questions. Escorted Pt to entrance, Pt left with family via private transportation.
== END 2020-11-06 13:00 | disposition home or self-care (01) ==
LOC: COL.CAR 06:40 → MEDICAL 10:38 → COL.CAR 11-06 13:00
PROVIDERS: Internal Medicine Cardiovascular Disease
DX: I49.5 Sick sinus syndrome (principal); I49.3 Ventricular premature depolarization; K21.9 Gastro-esophageal reflux disease without esophagitis; E03.9 Hypothyroidism, unspecified; Z20.822 Contact with and (suspected) exposure to COVID-19; J84.10 Pulmonary fibrosis, unspecified; Z79.899 Other long term (current) drug therapy; Z79.2 Long term (current) use of antibiotics; Z79.890 Hormone replacement therapy
CPT/HCPCS: OP; C1769; C1785; C1894; C1898; J0780; J2250; J3010; J3370; J7030; J7050

== ENCOUNTER 2020-11-14 12:46 | Outpatient (CLI) | payer MEDICARE, BC ==
[~2020-11-14] VITALS: Ht 165.1 cm; Wt 73.0 kg
[~2020-11-14 12:46] MED LIST changes: +ATROVENTNS0.03% NS; +CLEOCIN HC150 MG/CAP PO; +EPIPEN 2-PAK1 MG/ML IM; +PRIVIGEN 100 M100 ML IV; +TAGAMET800 MG PO
[2020-11-14 14:20] VITALS: BP 140/73; PULSE 73; TEMP 97.8
[2020-11-14 14:35] VITALS: BP 129/78; PULSE 69
[2020-11-14 14:50] VITALS: BP 145/46; PULSE 73; TEMP 98.4
[2020-11-14 15:20] VITALS: BP 140/67; PULSE 72; TEMP 97.8
[2020-11-14 15:50] VITALS: BP 142/78; PULSE 71
== END 2020-11-14 16:34 | disposition home health service (06) ==
LOC: EUO 12:46
DX: D80.1 Nonfamilial hypogammaglobulinemia (principal); L50.1 Idiopathic urticaria; Z95.9 Presence of cardiac and vascular implant and graft, unspecified
CPT/HCPCS: J1569; J1644

== ENCOUNTER 2020-12-12 12:48 | Outpatient (CLI) | payer MEDICARE, BC ==
[~2020-12-12] VITALS: Ht 165.1 cm; Wt 73.4 kg
[2020-12-12 13:28] VITALS: BP 124/67; PULSE 43; TEMP 98.6
[2020-12-12 13:45] VITALS: BP 132/64; PULSE 82
[2020-12-12] MEDS ORDERED: TOPROL XL 25MG25 MG PO (13:56)
[2020-12-12 14:00] VITALS: BP 148/75; PULSE 72; TEMP 98.5
[2020-12-12 14:15] VITALS: BP 139/70; PULSE 68
[2020-12-12 14:45] VITALS: BP 136/63; PULSE 40
[2020-12-12 15:15] VITALS: BP 148/85; PULSE 67
== END 2020-12-12 15:40 | disposition home or self-care (01) ==
LOC: EUO 12:48
DX: D80.1 Nonfamilial hypogammaglobulinemia (principal); L50.1 Idiopathic urticaria
CPT/HCPCS: J1569

== ENCOUNTER 2021-01-09 12:43 | Outpatient (CLI) | payer MEDICARE, BC ==
[2021-01-09] VITALS (7 sets, daily range): BP systolic 132–148; BP diastolic 54–89; PULSE 40–44; TEMP 97–98
[~2021-01-09] VITALS: Ht 165.1 cm; Wt 71.0 kg
[~2021-01-09 12:43] MED LIST changes: +TOPROL XL 25MG25 MG PO
== END 2021-01-09 16:30 | disposition home or self-care (01) ==
LOC: EUO 12:43
DX: D80.1 Nonfamilial hypogammaglobulinemia (principal)
CPT/HCPCS: J1459; J1569; J1644

== ENCOUNTER 2021-02-06 12:48 | Outpatient (CLI) | payer MEDICARE, BC ==
[2021-02-06] VITALS (7 sets, daily range): BP systolic 107–130; BP diastolic 51–78; PULSE 38–50; TEMP 98.1
[~2021-02-06] VITALS: Ht 165.1 cm; Wt 72.5 kg
[2021-02-06 13:06] LABS: BASO % 0.4 % (0.0-2.0); EOS # 0.4 (0.0-0.7); EOS % 6.1 % (0-4.0); GRAN % 70.8 % (42.2-75.2); HEMATOCRIT 39.2 % (37.0-47.0); HEMOGLOBIN 12.4 g/dl (12.5-16.0); MEAN CELL VOLUME 89 fl (80.0-100.0); MEAN CORPUSCULAR HEMOGLOBIN 28 pg (27.0-31.0); MEAN CORPUSCULAR HGB CONC 32 g/dl (33.0-37.0); MEAN PLATELET VOLUME 11.4 fl (7.4-10.4); MONO # 0.6 (0.1-0.6); MONO % 8.4 % (1.7-9.3); PLATELET COUNT 202 K/mm3 (130-400); RED BLOOD COUNT 4.39 M/mm3 (4.10-5.30)
[2021-02-06 13:20] LABS: ALBUMIN 4.2 gm/dL (3.5-5.0); BILIRUBIN,TOTAL 0.4 mg/dL (0.0-1.0); CALCIUM 9.1 mg/dL (8.4-10.2); CREATININE, serum 0.81 (0.52-1.25); POTASSIUM 4.1 mmol/L (3.4-5.0); TOTAL PROTEIN 7.3 gm/dL (6.4-8.2)
[2021-02-08 22:48] LABS: IMMUNOGLOBULIN G 1037 mg/dL (552-1631)
== END 2021-02-06 15:30 | disposition home or self-care (01) ==
LOC: EUO 12:48
PROVIDERS: Internal Medicine
DX: D80.1 Nonfamilial hypogammaglobulinemia (principal)
CPT/HCPCS: J1569; J1644

== ENCOUNTER 2021-03-13 12:43 | Outpatient (CLI) | payer MEDICARE, BC ==
[~2021-03-13] VITALS: Ht 165.1 cm; Wt 72.0 kg
[2021-03-13] VITALS (7 sets, daily range): BP systolic 116–158; BP diastolic 51–81; PULSE 40–76; TEMP 99
[2021-03-13] MEDS ORDERED: CORDARONE200 MG/TAB PO (15:16)
[2021-03-13] MEDS ORDERED: VESICARE 5MG5 MG PO (15:17)
== END 2021-03-13 15:39 | disposition home or self-care (01) ==
LOC: EUO 12:43
DX: D80.1 Nonfamilial hypogammaglobulinemia (principal)
CPT/HCPCS: J1459; J1569; J1644

== ENCOUNTER 2021-04-10 12:51 | Outpatient (CLI) | payer MEDICARE, BC ==
[~2021-04-10] VITALS: Ht 165.1 cm; Wt 72.5 kg
[~2021-04-10 12:51] MED LIST changes: +CORDARONE200 MG/TAB PO; +VESICARE 5MG5 MG PO
[2021-04-10 13:25] VITALS: BP 137/88; PULSE 70; TEMP 98.5
[2021-04-10 13:47] VITALS: BP 135/73; PULSE 71
[2021-04-10 14:02] VITALS: BP 156/89; PULSE 70
[2021-04-10 14:17] VITALS: BP 160/90; PULSE 69
[2021-04-10 14:47] VITALS: BP 144/83; PULSE 82
[2021-04-10 15:04] VITALS: BP 155/63; PULSE 79; TEMP 98.7
== END 2021-04-10 16:19 ==
LOC: EUO 12:51
DX: D80.1 Nonfamilial hypogammaglobulinemia (principal); Z79.899 Other long term (current) drug therapy
CPT/HCPCS: J1459

== ENCOUNTER 2021-05-08 12:45 | Outpatient (CLI) | payer MEDICARE, BC ==
[~2021-05-08] VITALS: Ht 165.1 cm; Wt 72.3 kg
[2021-05-08] VITALS (8 sets, daily range): BP systolic 133–148; BP diastolic 65–79; PULSE 70–71; TEMP 98.3
== END 2021-05-08 19:40 | disposition home or self-care (01) ==
LOC: EUO 12:45
DX: D80.1 Nonfamilial hypogammaglobulinemia (principal); Z79.899 Other long term (current) drug therapy
CPT/HCPCS: J1459; J1569

== ENCOUNTER → 2021-05-31 | Outpatient (CLI) | payer MEDICARE, BC | LOC: MC.RAD 13:25 | DX: Z12.31 Encounter for screening mammogram for malignant neoplasm of breast (principal) ==

== ENCOUNTER 2021-06-05 12:36 | Outpatient (CLI) | payer MEDICARE, BC ==
[~2021-06-05] VITALS: Ht 165.1 cm; Wt 72.5 kg
[2021-06-05] VITALS (7 sets, daily range): BP systolic 111–135; BP diastolic 71–88; PULSE 68–74; TEMP 98.4
== END 2021-06-05 15:41 ==
LOC: EUO 12:36
DX: D80.1 Nonfamilial hypogammaglobulinemia (principal); Z79.899 Other long term (current) drug therapy
CPT/HCPCS: J1459

== ENCOUNTER 2021-07-03 12:42 | Outpatient (CLI) | payer MEDICARE, BC ==
[~2021-07-03] VITALS: Ht 165.1 cm; Wt 73.7 kg
[2021-07-03] VITALS (7 sets, daily range): BP systolic 110–143; BP diastolic 64–89; PULSE 67–75; TEMP 97–98
[2021-07-03 13:23] LABS: BASO % 0.6 % (0.0-2.0); EOS # 0.4 K/mm3 (0.0-0.7); EOS % 5.9 % (0.0-4.0); GRAN # 4.8 K/mm3 (1.4-6.5); GRAN % 73.6 % (42.2-75.2); HEMATOCRIT 37.6 % (37.0-47.0); HEMOGLOBIN 12.1 g/dl (12.5-16.0); LYMPH # 0.6 K/mm3 (1.2-3.4); LYMPH % 9.8 % (20.0-51.0); MEAN CELL VOLUME 89 fl (80.0-100.0); MEAN CORPUSCULAR HEMOGLOBIN 29 pg (27-31); MEAN CORPUSCULAR HGB CONC 32 g/dl (33.0-37.0); MEAN PLATELET VOLUME 11.2 fl (7.4-10.4); MONO # 0.7 K/mm3 (0.1-0.6); MONO % 9.9 % (1.7-9.3); PLATELET COUNT 192 K/mm3 (130-400); RED BLOOD COUNT 4.23 M/mm3 (4.10-5.30); REDCELL DISTRIBUTION WIDTH-CV 15.8 % (11.5-14.5)
[2021-07-03 13:40] LABS: ALBUMIN 3.5 gm/dL (3.4-4.8); BILIRUBIN,TOTAL 0.3 mg/dL (0.2-1.2); CALCIUM 8.7 mg/dL (8.4-10.2); CREATININE, serum 0.81 mg/dL (0.57-1.11); POTASSIUM 3.8 mmol/L (3.5-4.5); TOTAL PROTEIN 6.7 gm/dL (6.2-8.1)
== END 2021-07-03 16:00 | disposition home or self-care (01) ==
LOC: EUO 12:42
PROVIDERS: Internal Medicine
DX: D80.1 Nonfamilial hypogammaglobulinemia (principal); Z79.899 Other long term (current) drug therapy
CPT/HCPCS: J1459; J1644

== ENCOUNTER 2021-08-27 12:44 | Outpatient (CLI) | payer MEDICARE, BC ==
[~2021-08-27] VITALS: Ht 165.1 cm; Wt 75.5 kg
[2021-08-27] VITALS (9 sets, daily range): BP systolic 124–151; BP diastolic 71–84; PULSE 70–74; TEMP 97.4–98.3
[2021-08-27] MEDS ORDERED: IRON TABLETS325 MG PO (13:23)
== END 2021-08-27 17:01 | disposition home or self-care (01) ==
LOC: EUO 12:44
DX: D80.1 Nonfamilial hypogammaglobulinemia (principal)
CPT/HCPCS: J1459; J1644

== ENCOUNTER 2021-09-24 12:42 | Outpatient (CLI) | payer MEDICARE, BC ==
[~2021-09-24] VITALS: Ht 165.1 cm; Wt 74.2 kg
[2021-09-24] VITALS (9 sets, daily range): BP systolic 119–149; BP diastolic 76–84; PULSE 68–76; TEMP 98.4–98.8
[~2021-09-24 12:42] MED LIST changes: +IRON TABLETS325 MG PO
== END 2021-09-24 15:54 | disposition home or self-care (01) ==
LOC: EUO 12:42
DX: D80.1 Nonfamilial hypogammaglobulinemia (principal)
CPT/HCPCS: J1459; J1644

== ENCOUNTER 2021-10-22 12:46 | Outpatient (CLI) | payer MEDICARE, BC ==
[~2021-10-22] VITALS: Ht 165.1 cm; Wt 74.0 kg
[2021-10-22] VITALS (7 sets, daily range): BP systolic 110–157; BP diastolic 72–83; PULSE 69–82; TEMP 98.7
== END 2021-10-22 16:00 | disposition home or self-care (01) ==
LOC: EUO 12:46
DX: D80.1 Nonfamilial hypogammaglobulinemia (principal)
CPT/HCPCS: J1459; J1644

== ENCOUNTER 2021-11-19 10:48 | Outpatient (CLI) | payer MEDICARE, BC ==
[~2021-11-19] VITALS: Ht 165.1 cm; Wt 74.3 kg
[2021-11-19 11:30] VITALS: BP 114/73; PULSE 73; TEMP 98.5
[2021-11-19 12:01] VITALS: BP 112/70; PULSE 69
[2021-11-19 12:31] VITALS: BP 117/73; PULSE 69
[2021-11-19 13:01] VITALS: BP 132/80; PULSE 70
== END 2021-11-19 14:09 | disposition home or self-care (01) ==
LOC: EUO 10:48
DX: D80.1 Nonfamilial hypogammaglobulinemia (principal)
CPT/HCPCS: J1459; J1644

== ENCOUNTER 2021-12-17 12:44 | Outpatient (CLI) | payer MEDICARE, BC ==
[~2021-12-17] VITALS: Ht 165.1 cm; Wt 73.9 kg
[2021-12-17 13:50] VITALS: BP 117/70; PULSE 93; TEMP 98
[2021-12-17 14:30] VITALS: BP 105/69; PULSE 69
[2021-12-17 14:52] VITALS: PULSE 61
[2021-12-17 15:07] VITALS: PULSE 71
[2021-12-17 15:22] VITALS: PULSE 68
[2021-12-17 15:37] VITALS: PULSE 69
--- NOTE | 2021-12-17 16:15 | NUR ---
Pt frustrated with infusion time, pt ignored covid and suicide questions. Pt did answer all health history and infectious disease questions. Educated pt to pharmacy's safe practices with medications would evolve to safest practices, pt shakes her head yes with explainations. pt ambulates at discharge to exit. New appt made.
== END 2021-12-17 16:15 | disposition home or self-care (01) ==
LOC: EUO 12:44
DX: D80.1 Nonfamilial hypogammaglobulinemia (principal)
CPT/HCPCS: J1459; J1644

== ENCOUNTER 2022-01-14 12:46 | Outpatient (CLI) | payer MEDICARE, BC ==
[~2022-01-14] VITALS: Ht 165.1 cm; Wt 73.0 kg
[2022-01-14 13:30] VITALS: BP 112/67; PULSE 67; TEMP 97.8
[2022-01-14 14:00] VITALS: BP 113/58; PULSE 70
[2022-01-14 14:30] VITALS: BP 124/66; PULSE 70
[2022-01-14 15:00] VITALS: BP 124/66; PULSE 70; TEMP 97.7
[2022-01-14 15:30] VITALS: BP 132/61; PULSE 70; TEMP 97.8
== END 2022-01-14 16:00 | disposition home or self-care (01) ==
LOC: EUO 12:46
DX: D80.1 Nonfamilial hypogammaglobulinemia (principal)
CPT/HCPCS: J1459; J1644

== ENCOUNTER 2022-02-11 08:40 | Outpatient (CLI) | payer MEDICARE, BC ==
[~2022-02-11] VITALS: Ht 165.1 cm; Wt 73.3 kg
[2022-02-11] VITALS (7 sets, daily range): BP systolic 104–128; BP diastolic 45–78; PULSE 70–71; TEMP 98
[2022-02-11 09:15] LABS: BASO % 0.7 % (0.0-2.0); EOS # 0.5 K/mm3 (0.0-0.7); EOS % 9.3 % (0.0-4.0); GRAN # 3.9 K/mm3 (1.4-6.5); GRAN % 66.4 % (42.2-75.2); HEMATOCRIT 39.8 % (37.0-47.0); HEMOGLOBIN 13.1 g/dl (12.5-16.0); LYMPH # 0.7 K/mm3 (1.2-3.4); LYMPH % 11.8 % (20.0-51.0); MEAN CELL VOLUME 92 fl (80.0-100.0); MEAN CORPUSCULAR HEMOGLOBIN 30 pg (27-31); MEAN CORPUSCULAR HGB CONC 33 g/dl (33.0-37.0); MEAN PLATELET VOLUME 11.4 fl (7.4-10.4); MONO # 0.7 K/mm3 (0.1-0.6); MONO % 11.3 % (1.7-9.3); PLATELET COUNT 184 K/mm3 (130-400); RED BLOOD COUNT 4.33 M/mm3 (4.10-5.30); REDCELL DISTRIBUTION WIDTH-CV 14.3 % (11.5-14.5)
[2022-02-11 09:31] LABS: ALBUMIN 3.5 gm/dL (3.4-4.8); BILIRUBIN,TOTAL 0.4 mg/dL (0.2-1.2); CALCIUM 9.2 mg/dL (8.4-10.2); CREATININE, serum 0.9 mg/dL (0.57-1.11); POTASSIUM 4.2 mmol/L (3.5-4.5); TOTAL PROTEIN 6.6 gm/dL (6.2-8.1)
== END 2022-02-13 08:26 ==
LOC: EUO 08:40
PROVIDERS: Internal Medicine
DX: D80.1 Nonfamilial hypogammaglobulinemia (principal)
CPT/HCPCS: J1459; J1644

== ENCOUNTER 2022-03-18 12:41 | Outpatient (CLI) | payer MEDICARE, BC ==
[~2022-03-18] VITALS: Ht 165.1 cm; Wt 72.7 kg
[2022-03-18] VITALS (7 sets, daily range): BP systolic 117–149; BP diastolic 54–69; PULSE 69–73; TEMP 98.2
== END 2022-03-18 16:07 ==
LOC: EUO 12:41
DX: Z45.2 Encounter for adjustment and management of vascular access device (principal); D80.1 Nonfamilial hypogammaglobulinemia
CPT/HCPCS: J1459; J1644

== ENCOUNTER 2022-08-05 12:40 | Outpatient (CLI) | payer MEDICARE, BC ==
[~2022-08-05] VITALS: Ht 165.1 cm; Wt 72.8 kg
[~2022-08-05 12:40] MED LIST changes: +TYLENOL 500MG500 MG PO
[2022-08-05 13:25] VITALS: BP 116/55; PULSE 73; TEMP 98
[2022-08-05 14:00] VITALS: BP 119/62; PULSE 72
[2022-08-05 14:30] VITALS: BP 131/67; PULSE 69; TEMP 98
[2022-08-05 15:00] VITALS: BP 143/73; PULSE 73
== END 2022-08-05 15:20 | disposition home or self-care (01) ==
LOC: EUO 12:40
DX: Z45.2 Encounter for adjustment and management of vascular access device (principal)
CPT/HCPCS: J1569; J1644

== ENCOUNTER 2022-09-02 12:41 | Outpatient (CLI) | payer MEDICARE, BC ==
[~2022-09-02] VITALS: Ht 165.1 cm; Wt 74.5 kg
[2022-09-02 13:17] VITALS: BP 132/72; PULSE 69; TEMP 98.6
[2022-09-02 13:40] VITALS: BP 133/76; PULSE 69; TEMP 98.6
[2022-09-02 14:13] VITALS: BP 148/81; PULSE 68
[2022-09-02 14:30] VITALS: BP 152/85; PULSE 71
[2022-09-02 14:56] VITALS: BP 160/88; PULSE 74; TEMP 98.8
== END 2022-09-02 14:59 ==
LOC: EUO 12:41
DX: D80.1 Nonfamilial hypogammaglobulinemia (principal)
CPT/HCPCS: J1569; J1644

== ENCOUNTER 2022-09-30 12:48 | Outpatient (CLI) | payer MEDICARE, BC ==
[2022-09-30 13:30] VITALS: BP 174/73; PULSE 70; TEMP 98.7
[2022-09-30 13:48] VITALS: BP 132/75; PULSE 68
[2022-09-30 14:03] VITALS: BP 173/93; PULSE 71
[2022-09-30 14:33] VITALS: BP 146/82; PULSE 70
[2022-09-30 15:03] VITALS: BP 148/73; PULSE 70
== END 2022-09-30 15:30 ==
LOC: EUO 12:48
DX: D80.1 Nonfamilial hypogammaglobulinemia (principal)
CPT/HCPCS: J1569; J1644

== ENCOUNTER 2022-10-28 12:38 | Outpatient (CLI) | payer MEDICARE, BC ==
[~2022-10-28] VITALS: Ht 165.1 cm; Wt 73.0 kg
[2022-10-28 14:00] VITALS: BP 145/71; PULSE 76; TEMP 98.5
[2022-10-28 14:30] VITALS: BP 154/78; PULSE 70
[2022-10-28 15:00] VITALS: BP 153/70; PULSE 70
[2022-10-28 15:30] VITALS: BP 150/70; PULSE 71
[2022-10-28 16:00] VITALS: BP 149/70; PULSE 78; TEMP 98
== END 2022-10-28 16:30 | disposition home or self-care (01) ==
LOC: EUO 12:38
DX: D80.1 Nonfamilial hypogammaglobulinemia (principal)
CPT/HCPCS: J1569; J1644

== ENCOUNTER 2022-11-25 12:42 | Outpatient (CLI) | payer MEDICARE, BC ==
[~2022-11-25] VITALS: Ht 165.1 cm; Wt 73.9 kg
[2022-11-25 13:30] LABS: BASO # 0.1 K/mm3 (0.0-0.2); BASO % 0.8 % (0.0-2.0); EOS # 0.3 K/mm3 (0.0-0.7); GRAN # 4.7 K/mm3 (1.4-6.5); GRAN % 72.7 % (42.2-75.2); HEMATOCRIT 37.5 % (37.0-47.0); HEMOGLOBIN 12.1 g/dl (12.5-16.0); LYMPH # 0.8 K/mm3 (1.2-3.4); LYMPH % 11.7 % (20.0-51.0); MEAN CELL VOLUME 92 fl (80.0-100.0); MEAN CORPUSCULAR HEMOGLOBIN 30 pg (27-31); MEAN CORPUSCULAR HGB CONC 32 g/dl (33.0-37.0); MEAN PLATELET VOLUME 10.6 fl (7.4-10.4); MONO # 0.7 K/mm3 (0.1-0.6); MONO % 10.3 % (1.7-9.3); PLATELET COUNT 204 K/mm3 (130-400); RED BLOOD COUNT 4.08 M/mm3 (4.10-5.30); REDCELL DISTRIBUTION WIDTH-CV 14.1 % (11.5-14.5)
[2022-11-25 13:40] VITALS: BP 134/65; PULSE 72; TEMP 98.5
[2022-11-25 13:52] LABS: ALBUMIN 3.5 gm/dL (3.4-4.8); BILIRUBIN,TOTAL 0.3 mg/dL (0.2-1.2); CREATININE, serum 0.83 mg/dL (0.57-1.11); POTASSIUM 4.3 mmol/L (3.5-4.5); TOTAL PROTEIN 6.6 gm/dL (6.2-8.1)
[2022-11-25 14:00] VITALS: BP 130/68; PULSE 70
[2022-11-25 14:30] VITALS: BP 147/74; PULSE 70; PULSE 71
[2022-11-25 15:00] VITALS: BP 147/65; PULSE 70
--- NOTE | 2022-11-25 15:39 | NUR ---
Pt tolerated infusion without issue. Port deaccessed after being flushed. Pt exits dept with steady gait.
== END 2022-11-25 15:39 | disposition home or self-care (01) ==
LOC: EUO 12:42
PROVIDERS: Allergy & Immunology Allergy
DX: D80.1 Nonfamilial hypogammaglobulinemia (principal)
CPT/HCPCS: J1569; J1644

== ENCOUNTER 2023-04-14 12:46 | Outpatient (CLI) | payer MEDICARE, BC ==
[~2023-04-14] VITALS: Ht 165.1 cm; Wt 69.9 kg
[~2023-04-14 12:46] MED LIST changes: +GAMMAGARD10 GM IV; -PRIVIGEN 100 M100 ML IV
[2023-04-14 13:23] VITALS: BP 137/65; PULSE 73; TEMP 98.6
[2023-04-14 13:30] VITALS: BP 142/82; PULSE 72
[2023-04-14 14:00] VITALS: BP 135/61; PULSE 69
--- NOTE | 2023-04-14 15:15 | NUR ---
Pt tolerated IGG without issue. Port flushed and deaccessed by WU Liang. Pt exits dept with steady gait.
== END 2023-04-14 15:15 | disposition home or self-care (01) ==
LOC: EUO 12:46
DX: D80.1 Nonfamilial hypogammaglobulinemia (principal)
CPT/HCPCS: J1569

== ENCOUNTER 2023-07-09 13:44 | Outpatient (CLI) | payer MEDICARE, BC ==
[~2023-07-09] VITALS: Ht 162.6 cm; Wt 70.2 kg
[2023-07-09 14:25] VITALS: BP 128/76; PULSE 71; TEMP 98.6
== END 2023-07-09 16:11 ==
LOC: EUO 13:44
DX: D80.1 Nonfamilial hypogammaglobulinemia (principal)
CPT/HCPCS: J1569; J1644

== ENCOUNTER 2023-08-06 12:41 | Outpatient (CLI) | payer MEDICARE, BC ==
[~2023-08-06] VITALS: Ht 162.6 cm; Wt 68.9 kg
[2023-08-06] MEDS ORDERED: Immune Globulin (Gammagard) 5 G/50 ML IV SOLN IV ONE (13:00)
[2023-08-06] MEDS ORDERED: Immune Globulin (Gammagard) 20 G/200 ML IV SOLN IV ONE (13:00)
[2023-08-06] MEDS ORDERED: diphenhydrAMINE 50 MG CAP PO ONE (13:15)
[2023-08-06] MEDS ORDERED: Acetaminophen 325 MG TAB PO ONE (13:15)
[2023-08-06 13:50] VITALS: BP 115/69; PULSE 70; TEMP 98.2
[2023-08-06 14:22] VITALS: BP 121/74; PULSE 70
[2023-08-06 15:25] VITALS: BP 134/71; PULSE 70
[2023-08-06 15:50] VITALS: BP 135/78; PULSE 69
== END 2023-08-06 15:55 | disposition home or self-care (01) ==
LOC: EUO 12:41
DX: D80.1 Nonfamilial hypogammaglobulinemia (principal)
CPT/HCPCS: J1569; J1644

== ENCOUNTER → 2023-10-08 | Outpatient (CLI) | payer MEDICARE, BC ==
[~2023-10-08] MED LIST changes: +Iohexol 300 - 100 ML VIAL IV ONE; +NS 100 ML IV SCH
== END ==
LOC: COL.RAD 14:48
DX: N13.2 Hydronephrosis with renal and ureteral calculous obstruction (principal); N21.0 Calculus in bladder; J47.9 Bronchiectasis, uncomplicated
CPT/HCPCS: Q9967

== ENCOUNTER 2023-10-29 12:42 | Outpatient (CLI) | payer MEDICARE, BC ==
[~2023-10-29] VITALS: Ht 162.6 cm; Wt 68.1 kg
[~2023-10-29 12:42] MED LIST changes: -Iohexol 300 - 100 ML VIAL IV ONE; -NS 100 ML IV SCH; +PERCOCET 325 MG1 TA2 PO
[2023-10-29] MEDS ORDERED: diphenhydrAMINE 50 MG CAP PO ONE (13:00)
[2023-10-29] MEDS ORDERED: Acetaminophen 325 MG TAB PO ONE (13:00)
[2023-10-29 13:04] VITALS: BP 110/60; PULSE 67; TEMP 98.2
[2023-10-29] MEDS ORDERED: Immune Globulin (Gammagard) 5 G/50 ML IV SOLN IV ONE (13:30)
[2023-10-29 13:42] VITALS: BP 131/80; PULSE 68
[2023-10-29] MEDS ORDERED: Immune Globulin (Gammagard) 20 G/200 ML IV SOLN IV ONE (14:00)
[2023-10-29 14:12] VITALS: BP 145/87; PULSE 68
[2023-10-29 14:42] VITALS: BP 154/82; PULSE 68
[2023-10-29 15:00] VITALS: BP 157/77; PULSE 68
--- NOTE | 2023-10-29 15:01 | NUR ---
Pt tolerated infusion without issue. Port flushed and deaccessed. Pt exits dept with steady gait. Free of complaints at time of discharge.
== END 2023-10-29 15:01 | disposition home or self-care (01) ==
LOC: EUO 12:42
DX: D80.1 Nonfamilial hypogammaglobulinemia (principal)
CPT/HCPCS: J1569; J1644

== ENCOUNTER 2023-12-24 12:37 | Outpatient (CLI) | payer MEDICARE, BC ==
[~2023-12-24] VITALS: Ht 162.6 cm; Wt 68.6 kg
[2023-12-24] MEDS ORDERED: Acetaminophen 325 MG TAB PO ONE (13:00)
[2023-12-24] MEDS ORDERED: Immune Globulin (Gammagard) 20 G/200 ML IV SOLN IV ONE (13:00)
[2023-12-24] MEDS ORDERED: diphenhydrAMINE 50 MG CAP PO ONE (13:00)
[2023-12-24] MEDS ORDERED: Immune Globulin (Gammagard) 5 G/50 ML IV SOLN IV ONE (13:00)
[2023-12-24 13:31] VITALS: BP 115/56; TEMP 98.3
[2023-12-24 13:40] VITALS: BP 115/64; PULSE 71
[2023-12-24 14:00] VITALS: BP 125/87; PULSE 71
[2023-12-24 14:20] VITALS: BP 138/73; PULSE 71
[2023-12-24 14:40] VITALS: BP 139/69; PULSE 70
[2023-12-24 15:00] VITALS: BP 152/72; PULSE 69
--- NOTE | 2023-12-24 15:36 | NUR ---
PT TOLERATED INFUSION WELL. PT AMBULATED INDEPENDENTLY TO MAIN [facility] UPON DISCHARGE. VS REMAINED WITHIN NORMAL LIMITS. PT FREE FROM ACUTE CONCERNS AND COMPLAINTS. PORT DEACCESSED AND HEPARINIZED UPON DISCHARGE.
== END 2023-12-24 15:37 | disposition home or self-care (01) ==
LOC: EUO 12:37
DX: D80.1 Nonfamilial hypogammaglobulinemia (principal)
CPT/HCPCS: J1569; J1644

== ENCOUNTER 2024-02-18 12:47 | Outpatient (CLI) | payer MEDICARE, BC ==
[~2024-02-18] VITALS: Ht 162.6 cm; Wt 68.6 kg
[2024-02-18] MEDS ORDERED: Acetaminophen 325 MG TAB PO ONE (13:30)
[2024-02-18] MEDS ORDERED: Immune Globulin (Gammagard) 5 G/50 ML IV SOLN IV ONE (13:30)
[2024-02-18] MEDS ORDERED: Immune Globulin (Gammagard) 20 G/200 ML IV SOLN IV ONE (13:30)
[2024-02-18] MEDS ORDERED: diphenhydrAMINE 50 MG CAP PO ONE (13:30)
[2024-02-18 13:34] LABS: BASO # 0.1 K/mm3 (0.0-0.2); BASO % 0.8 % (0.0-2.0); EOS # 0.7 K/mm3 (0.0-0.7); GRAN # 4.1 K/mm3 (1.4-6.5); GRAN % 64.5 % (42.2-75.2); HEMATOCRIT 38.6 % (37.0-47.0); HEMOGLOBIN 12.6 g/dl (12.5-16.0); LYMPH # 0.8 K/mm3 (1.2-3.4); LYMPH % 12.8 % (20.0-51.0); MEAN CELL VOLUME 95 fl (80.0-100.0); MEAN CORPUSCULAR HEMOGLOBIN 31 pg (27-31); MEAN CORPUSCULAR HGB CONC 33 g/dl (33.0-37.0); MEAN PLATELET VOLUME 11.7 fl (7.4-10.4); MONO # 0.7 K/mm3 (0.1-0.6); MONO % 10.7 % (1.7-9.3); PLATELET COUNT 181 K/mm3 (130-400); RED BLOOD COUNT 4.07 M/mm3 (4.10-5.30)
[2024-02-18 13:35] VITALS: BP 124/47; PULSE 70; TEMP 97.9
[2024-02-18 13:45] LABS: ALBUMIN 3.5 g/dL (3.4-4.8); BILIRUBIN,TOTAL 0.4 mg/dL (0.2-1.2); CREATININE, serum 0.82 mg/dL (0.57-1.11); POTASSIUM 4.1 mEq/L (3.5-4.5); TOTAL PROTEIN 6.4 g/dl (6.2-8.1)
[2024-02-18 14:00] VITALS: BP 145/57; PULSE 52
[2024-02-18 14:30] VITALS: BP 126/53; PULSE 57
[2024-02-18 15:00] VITALS: BP 150/52; PULSE 54
--- NOTE | 2024-02-18 15:23 | NUR ---
PT TOLERATED INFUSION WELL. VS REMAINED WITHIN NORMAL LIMITS. PORT WAS HEPARINIZED AND DEACCESSED UPON DISCHARGE. PT FREE FROM ACUTE CONCERNS AND COMPLAINTS. PT AMBULATED INDEPENDENTLY TO MAIN [facility].
== END 2024-02-18 15:24 | disposition home or self-care (01) ==
LOC: EUO 12:47
PROVIDERS: Allergy & Immunology Allergy
DX: D80.1 Nonfamilial hypogammaglobulinemia (principal)
CPT/HCPCS: J1569

== ENCOUNTER 2024-03-30 06:19 | Day surgery (SDC) | payer MEDICARE, BC ==
[~2024-03-30] VITALS: Ht 162.6 cm; Wt 66.4 kg
[2024-03-30] MEDS ORDERED: LR 1,000 ML IV SCH (07:00)
[2024-03-30 07:12] VITALS: BP 142/48; PULSE 85; TEMP 98.1
[2024-03-30] MEDS ORDERED: Lidocaine PF 2% (20 MG/ML) 5 ML VIAL IH ONE (08:28)
[2024-03-30] MEDS ORDERED: Lidocaine 2% Viscous 15 ML UNIT DOSE MM ONE (08:28)
[2024-03-30 08:45] VITALS: BP 120/86; PULSE 81; TEMP 98
--- NOTE | 2024-03-30 08:45 | NUR ---
PATIENT RETURNED TO ROOM 1 PER CART AFTER HAVING BRONCHOSCOPY. ORDER FOR BREATHING TREATMENT RECEIVED TO ASSIST WITH CONTINUOUS COUGH. 0900 DUO NEB COMPLETED BUT CONTINUES TO HAVE CONGESTED COUGH. ENCOURAGED TO EXPECTORATE ANY PHELGM. IS ABLE TO COUGH UP THICK YELLOW PHELGM AND HAS MINIMAL RELIEF. ATTEMPTS TO SUCK ON ICE CHIPS. 0915 SATS 89-91 WITH COUGHING. PLACED ON OXYGEN AT 1L PER NC. DR. VAIL NOTIFIED OF CONTINUOUS COUGH AND PATIENT'S C/O HEADACHE. ORDERS RECEIVED. 0947 650MG OF PO TYLENOL GIVEN AND ALBUTEROL SVN BEING ADMINISTERED BY R.T. 1000 BEGINNING TO HAVE LESS COUGHING. 1035 EATING PUDDING. ABLE TO DRINK WATER. IV WAS DISCONTINUED. 1107 PATIENT DRESSED AND GIVEN DISCHARGE INSTRUCTIONS. VOICES UNDERSTANDING OF THESE. 1119 PATIENT WAS DISCHARGED TO HOME DRIVEN BY FRIEND PER PRIVATE VEHICLE. TAKEN TO CAR BY THIS RN IN WHEELCHAIR AND ASSISTED INTO CAR WITH INSTRUCTIONS IN HAND.
[2024-03-30 09:00] VITALS: BP 123/79; PULSE 90
[2024-03-30] MEDS ORDERED: Albuterol/Ipratropium 3 MG-0.5 MG/3 ML Neb Soln IH PRN (09:00)
[2024-03-30 09:15] VITALS: BP 100/76; PULSE 80
[2024-03-30 09:30] VITALS: BP 119/71; PULSE 75
[2024-03-30 09:45] VITALS: BP 120/72; PULSE 88
[2024-03-30] MEDS ORDERED: Acetaminophen 325 MG TAB PO ONE (09:45)
[2024-03-30] MEDS ORDERED: Albuterol 0.083% Neb Soln 2.5 MG/3 ML UD IH ONE (09:45)
== END 2024-03-30 11:19 | disposition home or self-care (01) ==
LOC: SDCO 06:19
DX: J47.9 Bronchiectasis, uncomplicated (principal); R05.3 Chronic cough; Z86.19 Personal history of other infectious and parasitic diseases; Z87.01 Personal history of pneumonia (recurrent); Z95.0 Presence of cardiac pacemaker
CPT/HCPCS: J2704; J7120

== ENCOUNTER 2024-04-14 12:41 | Outpatient (CLI) | payer MEDICARE, BC ==
[~2024-04-14] VITALS: Ht 162.6 cm; Wt 67.8 kg
[2024-04-14] MEDS ORDERED: Acetaminophen 325 MG TAB PO ONE (13:00)
[2024-04-14] MEDS ORDERED: diphenhydrAMINE 50 MG CAP PO ONE (13:00)
[2024-04-14 13:02] VITALS: BP 117/57; PULSE 40; TEMP 97.9
[2024-04-14] MEDS ORDERED: Immune Globulin (Gammagard) 5 G/50 ML IV SOLN IV SCH (13:15)
[2024-04-14 13:20] VITALS: BP 111/92; PULSE 40
[2024-04-14 13:40] VITALS: BP 135/53; PULSE 38
[2024-04-14 14:00] VITALS: BP 138/66; PULSE 41
[2024-04-14 14:20] VITALS: BP 142/56; PULSE 44
[2024-04-14 15:30] VITALS: BP 179/79; PULSE 40
--- NOTE | 2024-04-14 15:30 | NUR ---
PT TOLERATED INFUSION WELL. VS REMAINED WITHIN NORMAL LIMITS. PT FREE FROM ACUTE CONCERNS AND COMPLAINTS UPON DISCHARGE. PT AMBULATED INDPENDENTLY TO MAIN [facility]. PORT A CATH WAS HEPARINIZED AND DEACCESSED. PT FREE FROM ACUTE CONCERNS AND COMPLAINTS. NEXT APPOINTMENT WAS MADE.
[2024-04-14] MEDS ORDERED: Immune Globulin (Gammagard) 20 G/200 ML IV SOLN IV SCH (16:00)
[2024-04-14] MEDS ORDERED: NS Flush 25 ML IV Bag IV ONE (18:00)
== END 2024-04-14 16:06 | disposition home or self-care (01) ==
LOC: EUO 12:41
DX: Z45.2 Encounter for adjustment and management of vascular access device (principal)
CPT/HCPCS: J1569